=== PATIENT | male | born 1965 | race Caucasian/White ===

== ENCOUNTER 2023-11-14 21:29 | Inpatient (IN) | payer OTHER ==
[~2023-11-14] VITALS: Ht 182.9 cm; Wt 92.4 kg
[2023-11-14 22:21] LABS: BASOPHILS # (AUTO) 0.02 K/uL (0.00-0.20); BASOPHILS % (AUTO) 0.2 % (0.0-5.0); EOSINOPHILS # (AUTO) 0.01 K/uL (0.00-0.70); EOSINOPHILS % (AUTO) 0.1 % (0.0-8.0); HEMATOCRIT 45.3 % (42-54); IMMATURE GRANULOCYTE ABSOLUTE 0.06 K/uL (0-1); LYMPHOCYTES % (AUTO) 16.4 % (21.0-51.0); MEAN CORPUSCULAR HEMOGLOBIN 29.9 pg (27.0-33.0); MEAN CORPUSCULAR HGB CONC 35.5 g/dL (32.0-36.0); MEAN CORPUSCULAR VOLUME 84.2 fL (79-99); MONOCYTES # (AUTO) 1.3 K/uL (0.1-1.0); MONOCYTES % (AUTO) 10.3 % (3.0-13.0); NEUTROPHILS # (AUTO) 8.9 K/uL (1.8-7.7); NEUTROPHILS % (AUTO) 72.5 % (40.0-77.0); PLATELET COUNT (AUTO) 360 K/uL (130-400); RED BLOOD CELL COUNT(AUTO) 5.38 MIL/uL (4.50-6.20); RED CELL DISTRIBUTION WIDTH 12.6 % (11.0-15.5); WHITE BLOOD COUNT (AUTO) 12.3 K/uL (4.8-10.8)
[2023-11-14 22:36] LABS: SARS-CoV-2, RNA, NAAT NEGATIVE SARS CoV-2 (NEGATIVE)
[2023-11-14] MEDS: ONDANSETRON 4MG INJ IVP ONE (22:39)
[2023-11-14 22:43] LABS: INFLUENZA TYPE A Negative For Type A (NEGATIVE); INFLUENZA TYPE B Negative For Type B (NEGATIVE)
[2023-11-14 22:47] LABS: CREATININE 1.5 mg/dL (0.5-1.3); POTASSIUM 3.5 mmol/L (3.5-5.1)
[2023-11-14 22:51] LABS: ALBUMIN 4.6 g/dL (3.5-5.0); BILIRUBIN,TOTAL 1.5 mg/dL (0.2-1.0); TOTAL PROTEIN, SERUM 8.3 g/dL (6.0-8.3)
[2023-11-14] MEDS ORDERED: IOHEXOL-350 75 ML VIAL IV ONE (22:55)
[2023-11-14 22:59] LABS: APPEARANCE,URINE CLEAR (CLEAR); BILIRUBIN,URINE NEGATIVE (NEGATIVE); COLOR,URINE LIGHT-YELLOW (YELLOW); GLUCOSE, URINE (UA) NEGATIVE (NEGATIVE); KETONES,URINE 20 mg/dL (NEGATIVE); LEUKOCYTE ESTERASE ,URINE NEGATIVE Leu/uL (NEGATIVE); NITRATE,URINE NEGATIVE (NEGATIVE); OCCULT BLOOD,URINE NEGATIVE (NEGATIVE); PH,URINE 5.5 (5.0-8.0); PROTEIN,URINE NEGATIVE (NEGATIVE); UROBILINOGEN,URINE 0.2 mg/dL (0.2-1.0)
[2023-11-14 23:16] LABS: ADD UA MICROSCOPIC YES
[2023-11-14 23:18] LABS: BACTERIA,URINE FEW /HPF (None Seen); MUCUS,URINE RARE LPF (None Seen); RBC,URINE 0-1 /HPF (0-1); SQUAMOUS EPITHELIAL CELL,UR RARE /HPF (0-2)
[2023-11-15] VITALS (8 sets, daily range): BP systolic 118–154; BP diastolic 81–95; PULSE 89–117; RESP 19–24; O2SAT 99
[2023-11-15] MEDS: MORPHINE 4 MG SYG IVP ONE (00:40)
[2023-11-15] MEDS ORDERED: GLUCAGON 1MG KIT 1 MG ML IM PRN (01:30)
[2023-11-15] MEDS ORDERED: CEFTRIAXONE 1G VIAL 2 GM in 0.9%NACL 100ML 100 ML IV SCH (01:30)
[2023-11-15] MEDS ORDERED: MAGNESIUM 2GM PREMIX 50ML 50 ML IV PRN (01:30)
[2023-11-15] MEDS ORDERED: ACETAMINOPHEN 325 MG TAB PO PRN ×2 (01:30)
[2023-11-15] MEDS ORDERED: POTASSIUM CHLORIDE 20MEQ/100ML 100 ML IV PRN (01:30)
[2023-11-15] MEDS ORDERED: DEXTROSE 50%-WATER 50 ML DISP.SYRIN IV PRN (01:30)
[2023-11-15 02:32] LABS: BASOPHILS # (AUTO) 0.03 K/uL (0.00-0.20); BASOPHILS % (AUTO) 0.2 % (0.0-5.0); EOSINOPHILS # (AUTO) 0.08 K/uL (0.00-0.70); EOSINOPHILS % (AUTO) 0.5 % (0.0-8.0); HEMATOCRIT 47.8 % (42-54); IMMATURE GRANULOCYTE ABSOLUTE 0.06 K/uL (0-1); LYMPHOCYTES # (AUTO) 2.2 K/uL (1.0-4.8); MEAN CORPUSCULAR HGB CONC 34.9 g/dL (32.0-36.0); MEAN CORPUSCULAR VOLUME 85.8 fL (79-99); MONOCYTES # (AUTO) 1.6 K/uL (0.1-1.0); MONOCYTES % (AUTO) 10.2 % (3.0-13.0); NEUTROPHILS # (AUTO) 11.7 K/uL (1.8-7.7); NEUTROPHILS % (AUTO) 74.7 % (40.0-77.0); PLATELET COUNT (AUTO) 356 K/uL (130-400); RED BLOOD CELL COUNT(AUTO) 5.57 MIL/uL (4.50-6.20); RED CELL DISTRIBUTION WIDTH 12.5 % (11.0-15.5); WHITE BLOOD COUNT (AUTO) 15.6 K/uL (4.8-10.8)
[2023-11-15 02:48] LABS: ALBUMIN 4.5 g/dL (3.5-5.0); BILIRUBIN,DIRECT 0.3 mg/dL (0.0-0.3); BILIRUBIN,TOTAL 1.3 mg/dL (0.2-1.0); CREATININE 1.3 mg/dL (0.5-1.3); MAGNESIUM 2.3 mg/dL (1.80-2.40); POTASSIUM 3.8 mmol/L (3.5-5.1); TOTAL PROTEIN, SERUM 7.8 g/dL (6.0-8.3)
[2023-11-15 03:01] LABS: HEMOGLOBIN A1C 7.1 % (4.0-6.0)
[2023-11-15] MEDS: 0.9%NACL 1000ML 1,000 ML IV SCH (03:06)
[2023-11-15] MEDS ORDERED: ALPR1TAB7 PO (03:39)
[2023-11-15] MEDS: KETOROLAC 15MG/ML VIAL (15MG/ML) IV PRN (03:45)
[2023-11-15 03:52] LABS: ERYTHROCYTE SEDIMENTATION RATE 2 MM/HR (0-20)
[2023-11-15] MEDS: ONDANSETRON 4MG INJ IV PRN (04:15)
[2023-11-15] MEDS ORDERED: DICY20TA3 PO (04:23)
[2023-11-15] MEDS ORDERED: ATOR40TA69 PO (04:23)
[2023-11-15] MEDS ORDERED: ZOLP12.570 PO (04:23)
[2023-11-15] MEDS: CEFTRIAXONE 1G VIAL IVPB SCH (04:29)
[2023-11-15] MEDS: MORPHINE 2 MG SYG IVP PRN (04:33)
[2023-11-15] MEDS: CEFTRIAXONE 1G VIAL ONE (04:33)
[2023-11-15] MEDS ORDERED: ESCI5TAB16 PO (04:37)
[2023-11-15] MEDS ORDERED: LISI20TA24 PO (04:37)
[2023-11-15] MEDS ORDERED: PROM25TA7 PO (04:37)
[2023-11-15] MEDS ORDERED: GLIP2.5T2 PO (04:40)
[2023-11-15] MEDS ORDERED: NEBI10TA12 PO (04:40)
[2023-11-15] MEDS ORDERED: IBUP-2784 PO (04:40)
[2023-11-15] MEDS: INSULIN HUMULIN R 100 UNIT/ML 3ML SQ SCH (06:07)
[2023-11-15] MEDS: FAMOTIDINE 20MG VIAL IV SCH (08:20)
[2023-11-15] MEDS ORDERED: IBUPROFEN 200 MG TAB PO PRN (15:30)
[2023-11-15] MEDS ORDERED: PROMETHAZINE HCL 25 MG TABLET PO PRN (15:30)
[2023-11-15] MEDS: ZOLPIDEM TARTRATE 5 MG TAB PO PRN (21:10)
[2023-11-15] MEDS: DICYCLOMINE HCL 20 MG TAB PO SCH (21:10)
[2023-11-16 03:40] VITALS: BP 163/94; PULSE 89; RESP 22
[2023-11-16] MEDS: ALPRAZOLAM 1 MG TAB PO PRN (04:03)
[2023-11-16] MEDS: GLIPIZIDE XL 2.5MG TAB PO SCH (04:08)
[2023-11-16 05:48] LABS: HEMATOCRIT 39.8 % (42-54); MEAN CORPUSCULAR HEMOGLOBIN 30.1 pg (27.0-33.0); MEAN CORPUSCULAR HGB CONC 34.7 g/dL (32.0-36.0); MEAN CORPUSCULAR VOLUME 86.9 fL (79-99); PLATELET COUNT (AUTO) 268 K/uL (130-400); RED BLOOD CELL COUNT(AUTO) 4.58 MIL/uL (4.50-6.20); RED CELL DISTRIBUTION WIDTH 12.6 % (11.0-15.5)
[2023-11-16 06:26] LABS: ALBUMIN 3.5 g/dL (3.5-5.0); CREATININE 1.1 mg/dL (0.5-1.3); POTASSIUM 3.8 mmol/L (3.5-5.1); TOTAL PROTEIN, SERUM 6.5 g/dL (6.0-8.3)
[2023-11-16 06:59] LABS: BASOPHILS % (MANUAL) 2 % (0-2); EOSINOPHILS % (MANUAL) 1 % (1-6); LYMPHOCYTES % (MANUAL) 29 % (22-44); MAN.DIFF COMMENT-IMPRESSION MANUAL DIFFERENTIAL; MONOCYTES % (MANUAL) 9 % (2-9); PLATELET MORPHOLOGY COMMENT ADEQUATE; SEGMENTED NEUTROPHILS % 59 % (40-70); TOTAL CELLS COUNTED 100
[2023-11-16 07:50] VITALS: BP 149/91; PULSE 81; RESP 18
[2023-11-16 08:00] VITALS: O2SAT 99
[2023-11-16] MEDS: Escitalopram Oxalate 5 MG PO SCH (09:00)
[2023-11-16] MEDS: NEBIVOLOL HCL 10 MG PO SCH (09:00)
[2023-11-16] MEDS: ATORVASTATIN 40 MG TABLET PO SCH (09:00)
[2023-11-16 12:00] VITALS: BP 158/101; PULSE 82; RESP 18
[2023-11-16] MEDS: LORAZEPAM 2 MG/ML 1 ML VIAL IVP ONE (15:31)
[2023-11-16 20:00] VITALS: BP 131/72; PULSE 92; RESP 19
[2023-11-16] MEDS: LISINOPRIL 20 MG TABLET PO SCH (20:27)
[2023-11-16 20:30] VITALS: O2SAT 98
[2023-11-17 00:20] VITALS: BP 131/64; PULSE 86; RESP 18
[2023-11-17 04:39] VITALS: BP 105/69; PULSE 71; RESP 18
[2023-11-17 08:10] VITALS: BP 122/72; PULSE 67; RESP 18
[2023-11-17 10:30] VITALS: O2SAT 97
[2023-11-17 11:23] VITALS: BP 124/79; PULSE 66; RESP 17
== END 2023-11-17 15:45 | disposition home or self-care (01) | DRG 444 ==
LOC: EDH 21:29 → EDHIP 11-15 01:15 → 4CH 11-15 03:08
PROVIDERS: ADMIT Hospitalist; ATTEND Hospitalist
DX: K81.0 Acute cholecystitis (principal); K85.90 Acute pancreatitis without necrosis or infection, unspecified; R65.11 Systemic inflammatory response syndrome (SIRS) of non-infectious origin with acute organ dysfunction; N39.0 Urinary tract infection, site not specified; N17.9 Acute kidney failure, unspecified; Z20.822 Contact with and (suspected) exposure to COVID-19; I10 Essential (primary) hypertension; E11.65 Type 2 diabetes mellitus with hyperglycemia; K76.0 Fatty (change of) liver, not elsewhere classified; K57.30 Diverticulosis of large intestine without perforation or abscess without bleeding; G47.30 Sleep apnea, unspecified; E78.00 Pure hypercholesterolemia, unspecified; F41.9 Anxiety disorder, unspecified; Z96.611 Presence of right artificial shoulder joint; Z87.442 Personal history of urinary calculi
CPT/HCPCS: 36415; 71045; 74177; 76700; 78227; 80048; 80053; 80061; 80076; 81001; 82306; 82607; 82948; 83036; 83605; 83690; 83735; 84145; 84425; 84484; 85025; 85651; 86677; 87040; 87086; 87507; 87635; 87804; 87880; 93005; 96375; 96376; 99291; A9537; G0378; J0696; J1815; J1885; J2060; J2270; J2405; J3490; Q9967